=== PATIENT | female | born 2000 | race Caucasian/White ===

== ENCOUNTER → 2019-07-27 | Outpatient (REF) | payer OTHER ==
[2019-07-27 19:49] LABS: APPEARANCE, URINE HAZY (CLEAR); COLOR, URINE YELLOW (YELLOW)
[2019-07-27 19:50] LABS: BILIRUBIN, URINE AUTO NEGATIVE (NEGATIVE); BLOOD, URINE BLOOD NEGATIVE (NEGATIVE); GLUCOSE, URINE (UA) AUTO NEGATIVE (NEGATIVE); KETONE, URINE AUTO NEGATIVE (NEGATIVE); LEUKOCYTE ESTERASE, URINE AUTO NEGATIVE (NEGATIVE); NITRITE, URINE AUTO NEGATIVE (NEGATIVE); PROTEIN, URINE AUTO NEGATIVE (NEGATIVE); SPECIFIC GRAVITY URINE AUTO 1.021 (1.002-1.035); UROBILINOGEN, URINE AUTO 0.2 mg/dL (0.0-2.0); WBC, URINE AUTO 1 /HPF (0-3)
[2019-07-27 19:51] LABS: BACTERIA, URINE AUTO 3+ (NEGATIVE); MUCUS, URINE SMALL (NEGATIVE); RBC, URINE AUTO 1 /HPF (0-3); SQUAMOUS EPITHELIAL CELL UR AU 3 /HPF (0-6)
== END ==
LOC: M SMT 16:58
PROVIDERS: ATTEND Nurse Practitioner Family
DX: R39.198 Other difficulties with micturition (principal)
CPT/HCPCS: 51798; 81001; 87088; 87186; G0463

== ENCOUNTER → 2021-02-28 | Outpatient (REF) | payer OTHER | LOC: M WUC 15:43 | PROVIDERS: ATTEND Physician Assistant | DX: R30.0 Dysuria (principal) ==

== ENCOUNTER → 2024-01-10 | Outpatient (CLI) | payer OTHER ==
[2024-01-10 16:02] LABS: HEMATOCRIT 38.1 % (36.0-47.0); HEMOGLOBIN 13.2 g/dl (12.0-15.5); MEAN CORPUSCULAR HEMOGLOBIN 32.3 pg (27.0-33.0); MEAN CORPUSCULAR HGB CONC 34.6 g/dl (32.0-36.5); MEAN CORPUSCULAR VOLUME 93.2 fl (80.0-96.0); PLATELET COUNT, AUTOMATED 205 10^3/uL (150-450); RED BLOOD COUNT 4.09 10^6/uL (4.00-5.40); WHITE BLOOD COUNT 9.2 10^3/uL (4.0-10.0)
[2024-01-10 16:49] LABS: HIV 1&2 SCREEN NEGATIVE (NEGATIVE)
[2024-01-10 16:57] LABS: HEPATITIS C VIRUS ABY INDEX 0.11 INDEX (<0.8)
[2024-01-10 17:36] LABS: GC DNA AMPLIFICATION NEGATIVE (NEGATIVE)
== END ==
LOC: M PLALAB 12:24
PROVIDERS: ATTEND Advanced Practice Midwife
DX: Z34.81 Encounter for supervision of other normal pregnancy, first trimester (principal)

== ENCOUNTER 2024-01-13 11:01 | Emergency (ER) | payer OTHER ==
[~2024-01-13] VITALS: Ht 160 cm; Wt 56.8 kg
[2024-01-13] MEDS ORDERED: NITR100C2 (11:18)
[2024-01-13] MEDS ORDERED: AMOX875T2 PO (13:07)
[2024-01-13 13:13] VITALS: BP 117/76; TEMP 97.9; O2SAT 99
== END 2024-01-13 13:14 | disposition home or self-care (01) ==
LOC: M ED 11:01
DX: S61.451A Open bite of right hand, initial encounter (principal); W54.0XXA Bitten by dog, initial encounter; Y92.9 Unspecified place or not applicable; Y93.9 Activity, unspecified; Y99.0 Civilian activity done for income or pay; Z79.1 Long term (current) use of non-steroidal anti-inflammatories (NSAID); Z85.858 Personal history of malignant neoplasm of other endocrine glands

== ENCOUNTER → 2024-03-03 | Outpatient (CLI) | payer OTHER ==
[~2024-03-03] MED LIST: AMOX875T2 PO; NITR100C2
== END ==
LOC: M RAD 08:37
PROVIDERS: ATTEND Obstetrics & Gynecology
DX: Z34.91 Encounter for supervision of normal pregnancy, unspecified, first trimester (principal)

== ENCOUNTER → 2024-05-29 | Outpatient (CLI) | payer OTHER ==
[2024-05-29 14:04] LABS: HEMATOCRIT 35.8 % (36.0-47.0); HEMOGLOBIN 12.3 g/dl (12.0-15.5); MEAN CORPUSCULAR HEMOGLOBIN 32.8 pg (27.0-33.0); MEAN CORPUSCULAR HGB CONC 34.4 g/dl (32.0-36.5); MEAN CORPUSCULAR VOLUME 95.5 fl (80.0-96.0); PLATELET COUNT, AUTOMATED 180 10^3/uL (150-450); RED BLOOD COUNT 3.75 10^6/uL (4.00-5.40); WHITE BLOOD COUNT 9.7 10^3/uL (4.0-10.0)
[2024-05-29 14:25] LABS: GLUCOSE CHALLENGE TEST 1 HOUR 82 MG/DL (LESS THAN 140)
[2024-05-29 14:56] LABS: HIV 1&2 SCREEN NEGATIVE (NEGATIVE)
[2024-05-29 15:04] LABS: HEPATITIS C VIRUS ABY INDEX < 0.02 INDEX (<0.8)
[2024-05-29 15:18] LABS: GC DNA AMPLIFICATION NEGATIVE (NEGATIVE)
== END ==
LOC: M PLALAB 09:39
PROVIDERS: ATTEND Advanced Practice Midwife
DX: Z34.82 Encounter for supervision of other normal pregnancy, second trimester (principal)

== ENCOUNTER → 2024-07-07 | Outpatient (CLI) | payer OTHER | LOC: M RAD 09:29 | PROVIDERS: ATTEND Obstetrics & Gynecology | DX: O41.03X0 Oligohydramnios, third trimester, not applicable or unspecified (principal); Z3A.36 36 weeks gestation of pregnancy ==

== ENCOUNTER 2024-07-19 16:17 | Outpatient (CLI) | payer OTHER ==
[~2024-07-19] VITALS: Ht 152.4 cm; Wt 73.3 kg
[2024-07-19] MEDS ORDERED: ACET-907 PO (16:30)
[2024-07-19] MEDS ORDERED: PRENTAB9 PO (16:30)
[2024-07-19] MEDS ORDERED: HOME MED LIST COMPLETE! XX SCH (16:30)
[2024-07-19 16:34] VITALS: BP 114/68; O2SAT 96
[2024-07-19 17:02] VITALS: BP 120/72; O2SAT 97
== END 2024-07-19 17:09 | disposition home or self-care (01) ==
LOC: M LDO 16:17
PROVIDERS: ATTEND Advanced Practice Midwife
DX: O36.8130 Decreased fetal movements, third trimester, not applicable or unspecified (principal); Z3A.38 38 weeks gestation of pregnancy
CPT/HCPCS: 59025; G0463

== ENCOUNTER 2024-07-27 11:56 | Inpatient (IN) | payer OTHER ==
[~2024-07-27] VITALS: Ht 160 cm; Wt 74.1 kg
[2024-07-27] VITALS (8 sets, daily range): BP systolic 102–114; BP diastolic 60–75
[~2024-07-27 11:56] MED LIST changes: +ACET-907 PO; +PRENTAB9 PO
[2024-07-27] MEDS ORDERED: HOME MED LIST COMPLETE! XX SCH (12:25)
[2024-07-27 13:20] LABS: HEMATOCRIT 36.2 % (36.0-47.0); HEMOGLOBIN 12.6 g/dl (12.0-15.5); MEAN CORPUSCULAR HEMOGLOBIN 32.1 pg (27.0-33.0); MEAN CORPUSCULAR HGB CONC 34.8 g/dl (32.0-36.5); MEAN CORPUSCULAR VOLUME 92.1 fl (80.0-96.0); PLATELET COUNT, AUTOMATED 220 10^3/uL (150-450); RED BLOOD COUNT 3.93 10^6/uL (4.00-5.40); WHITE BLOOD COUNT 10.1 10^3/uL (4.0-10.0)
[2024-07-27 14:13] LABS: HIV 1&2 SCREEN NEGATIVE (NEGATIVE)
[2024-07-27 14:21] LABS: HEPATITIS C VIRUS ABY INDEX 0.05 INDEX (<0.8)
[2024-07-27] MEDS ORDERED: OXYTOCIN INJ 10UNITS/ML 1ML VIAL IV PRN (16:25)
[2024-07-27] MEDS: miSOPROStol 25MCG 1/4 TABLET BUC ONE ×2 (17:16→21:18)
[2024-07-28] VITALS (30 sets, daily range): BP systolic 91–179; BP diastolic 56–133; O2SAT 97–100
[2024-07-28] MEDS: miSOPROStol 25MCG 1/4 TABLET BUC ONE (01:33)
[2024-07-28] MEDS ORDERED: diphenhydrAMINE 50MG/ML VIAL IV PRN (03:45)
[2024-07-28] MEDS ORDERED: NALOXONE INJ 0.4MG/1ML VIAL IV PRN (03:45)
[2024-07-28] MEDS ORDERED: ONDANSETRON 4MG 2ML VIAL IV PRN (03:45)
[2024-07-28] MEDS ORDERED: EPIDURAL/PCA KEYS XX PRN (03:45)
[2024-07-28] MEDS: FENTANYL/ROPIVACAINE/NACL BAG 100 ML EPIDURAL SCH (03:52)
[2024-07-28] MEDS: ePHEDrine SULFATE 25 MG/5 ML(5MG/ML) SYRINGE IVP PRN (04:34)
[2024-07-28] MEDS: LR 500 ML IV PRN (04:39)
[2024-07-28] MEDS ORDERED: OXYTOCIN 30UNITS IN 0.9% NaCl 500ML IV BAG As Ordered ONE (07:55)
[2024-07-28] MEDS ORDERED: MOM 30ML SUSPENSION UDC PO PRN (08:50)
[2024-07-28] MEDS ORDERED: ACETAMINOPHEN 325 MG TAB PO PRN (08:50)
[2024-07-28] MEDS ORDERED: RHOGAM 300MCG (1500IU) INJ IM SCH (08:50)
[2024-07-28] MEDS ORDERED: CALCIUM CARBONATE 500 MG CHEW U/D PO PRN (08:50)
[2024-07-28] MEDS ORDERED: METHYLERGONOVINE MALEATE 0.2 MG TAB PO PRN (08:50)
[2024-07-28] MEDS ORDERED: ANUSOL HC CREAM 30GM TOP PRN (08:50)
[2024-07-28] MEDS: OXYTOCIN DRIP 30 UNITS in IV 1 EA IV SCH (09:35)
[2024-07-28] MEDS: PRENATAL VITAMINS CHEWABLE TABLET PO SCH (10:50)
[2024-07-28] MEDS: IBUPROFEN 600MG TAB PO PRN (14:28)
[2024-07-28] MEDS: ACETAMINOPHEN 500 MG TAB PO PRN (19:34)
[2024-07-28] MEDS: IBUPROFEN 800 MG TAB PO PRN (20:55)
[2024-07-29 06:00] VITALS: BP 114/69; O2SAT 98
[2024-07-29] MEDS: DOCUSATE SODIUM 100MG CAPSULE PO PRN (08:32)
[2024-07-29] MEDS: DIBUCAINE 1% OINTMENT 30GM TOP PRN (15:38)
[2024-07-29 18:00] VITALS: BP 119/71; O2SAT 98
[2024-07-30 06:00] VITALS: BP 132/86; O2SAT 96
[2024-07-30] MEDS ORDERED: MEASLES,MUMPS,RUBELLA VACCINE INJ (MMR-II) SC.IMMUN ONE (09:00)
[2024-07-30] MEDS ORDERED: ACET-683 PO (12:41)
[2024-07-30] MEDS ORDERED: IBUP80TA PO (12:41)
== END 2024-07-30 14:00 | disposition home or self-care (01) | DRG 807 ==
LOC: M LDI 11:56 → M OBS 07-28 10:18
PROVIDERS: ADMIT Obstetrics & Gynecology; ATTEND Advanced Practice Midwife
PROC: 3E0P7GC Introduction of Other Therapeutic Substance into Female Reproductive, Via Natural or Artificial Opening (ICD-10-PCS; 2024-07-27)
PROC: 10E0XZZ Delivery of Products of Conception, External Approach (ICD-10-PCS; principal; 2024-07-28)
PROC: 0HQ9XZZ Repair Perineum Skin, External Approach (ICD-10-PCS; 2024-07-28)
DX: O70.0 First degree perineal laceration during delivery (principal); Z37.0 Single live birth; Z3A.39 39 weeks gestation of pregnancy